=== PATIENT | female | born 1990 | race Caucasian/White ===

== ENCOUNTER 2021-08-15 00:18 | Emergency (ER) | payer OTHER ==
[~2021-08-15] VITALS: Ht 165.1 cm; Wt 63.5 kg
[2021-08-15 01:07] LABS: HEMATOCRIT 41.6 % (31.2-41.9); MEAN CORPUSCULAR HEMOGLOBIN 30.2 uug (24.7-32.8); MEAN CORPUSCULAR VOLUME 89.9 fL (75.5-95.3); PLATELET COUNT (AUTO) 249 K/uL (179-408)
[2021-08-15 01:26] LABS: ALANINE AMINOTRANSFERASE 50 U/L (14-59); ALKALINE PHOSPHATASE 67 U/L (50-136); ASPARTATE AMINOTRANSFERASE 38 U/L (15-37); BILIRUBIN,DIRECT 0.1 mg/dL (0.0-0.2); BILIRUBIN,TOTAL 0.2 mg/dL (0.2-1.0); CARBON DIOXIDE 33 mmol/L (21-32); CHLORIDE 105 mmol/L (98-107); CREATININE 0.9 mg/dL (0.6-1.3); GLUCOSE 88 mg/dL (74-106); POTASSIUM 3.6 mmol/L (3.5-5.1); TOTAL PROTEIN, SERUM 7.2 g/dL (6.4-8.2); UREA NITROGEN, BLOOD 16 mg/dL (7-18)
[2021-08-15 01:29] LABS: ACETAMINOPHEN < 2.0 ug/mL (10-30)
[2021-08-15 01:33] LABS: ETHANOL < 3 MG/DL (0-0)
[2021-08-15] MEDS ORDERED: IV NORMAL SALINE 1000 ML BAG IV ONE (02:00)
--- NOTE | 2021-08-15 02:00 | NUR ---
Patient ambulatory with steady to restroom. No distress noted.
[2021-08-15 03:23] LABS: *AMPHETAMINE, URINE POSITIVE (NEGATIVE); *CANNABINOID, URINE POSITIVE (NEGATIVE); *COCCAINE, URINE NEGATIVE (NEGATIVE); *OPIATE, URINE POSITIVE (NEGATIVE); *PHENCYCLIDINE SCREEN,URINE NEGATIVE (NEGATIVE)
--- NOTE | 2021-08-15 04:00 | NUR ---
Patient sleeping on gurny with no distress noted.
--- NOTE | 2021-08-15 05:51 | NUR ---
IV removed. Catheter intact and site benign. Pressure and 4x4 gauze applied to site. No bleeding noted.
--- NOTE | 2021-08-15 06:26 | NUR ---
Patient discharged to home in stable condition with friend taking patient . Written and verbal after care instructions given. Patient verbalizes understanding of instructions. Stressed follow up or return to ER for worsening s/s.
[2021-08-15 06:30] VITALS: BP 122/89
== END 2021-08-15 06:31 | disposition home or self-care (01) ==
LOC: ER 00:21
DX: F19.10 Other psychoactive substance abuse, uncomplicated (principal); R41.82 Altered mental status, unspecified; J96.90 Respiratory failure, unspecified, unspecified whether with hypoxia or hypercapnia; T40.601A Poisoning by unspecified narcotics, accidental (unintentional), initial encounter; Y92.032 Bedroom in apartment as the place of occurrence of the external cause; R00.0 Tachycardia, unspecified; Z82.49 Family history of ischemic heart disease and other diseases of the circulatory system; F17.200 Nicotine dependence, unspecified, uncomplicated
CPT/HCPCS: 36415; 71045; 85025; 93005; A4663; G0480; J7030